=== PATIENT | female | born 1950 | race Caucasian/White ===

== ENCOUNTER → 2017-01-01 | Outpatient (CLI) | payer OTHER, MEDICARE ==
--- NOTE | 2017-01-01 13:33 | DIAGNOSTIC IMAGING REPORT ---
LUMBAR SPINE 5 VIEWS CLINICAL HISTORY: Right-sided sciatica. FINDINGS: Five views of the lumbar spine are obtained. No prior studies are available for comparison at the time of dictation. The skeletal structures are osteopenic. There is no radiographic evidence of fracture or malalignment. Vertebral body height and alignment are maintained throughout the lumbar spine. Anterior osteophytes are seen throughout. The transverse and spinous processes appear preserved. There is no evidence of spondylolysis. Facet arthropathy is seen in the lower lumbar region. There is moderate degenerative disc space narrowing at L1-L2 with associated endplate sclerosis. Mild disc space narrowing is seen at the remaining lumbar levels. Endplate sclerosis is also seen at L3-L4. The bony pelvis is intact as visualized. Sclerotic change is noted in the sacroiliac joints. There is a nonobstructed abdominal bowel gas pattern. Phleboliths are seen in the pelvis. There is moderate atherosclerotic calcification of the abdominal aorta. IMPRESSION: 1. There is no acute bony abnormality seen involving the lumbosacral spine. 2. Osteopenia and spondylotic change as above. Dictated: 01/01/2017 1:21 PM Transcribed: 01/01/2017 1:33 PM Patience Electronically signed by: Gerardo Shaffer M.D. 01/01/2017 1:45 PM Dictated Date/Time: 01/01/2017 1:21 PM
== END | disposition home or self-care (01) ==
LOC: C.RAD1850 11:50
PROVIDERS: ATTEND Internal Medicine
DX: M54.31 Sciatica, right side (principal); M85.80 Other specified disorders of bone density and structure, unspecified site

== ENCOUNTER → 2017-02-23 | Outpatient (CLI) | payer OTHER, MEDICARE ==
[2017-02-23 15:53] LABS: ALT/SGPT 65 U/L (12-78); BLOOD UREA NITROGEN 14 mg/dl (7-18); BUN/CREATININE RATIO 18.5 (10-20); CALCIUM 9.3 mg/dl (8.5-10.1); CARBON DIOXIDE 31 mmol/L (21-32); CHLORIDE 100 mmol/L (98-107); CREATININE 0.73 mg/dl (0.60-1.20); GLUCOSE 218 mg/dl (70-99); POTASSIUM 3.4 mmol/L (3.5-5.1); SODIUM 141 mmol/L (136-145)
[2017-02-23 15:56] LABS: ALB/GLOB RATIO 1.2 (0.9-2); ALKALINE PHOSPHATASE 69 U/L (45-117); AST/SGOT 35 U/L (15-37)
[2017-02-24 07:40] LABS: ESTIMATED AVERAGE GLUCOSE 154 mg/dl; HA1C FLAG Normal (Normal)
== END | disposition home or self-care (01) ==
LOC: C.LAB 15:09
PROVIDERS: ATTEND Internal Medicine
DX: R94.5 Abnormal results of liver function studies (principal); E11.9 Type 2 diabetes mellitus without complications; I10 Essential (primary) hypertension; E78.5 Hyperlipidemia, unspecified

== ENCOUNTER → 2017-02-26 | Outpatient (CLI) | payer OTHER, MEDICARE ==
[2017-02-26 12:24] LABS: BASO % 0.5 %; BASO ABS # 0.04 K/uL (0-0.2); COMPLETE YES; EOS % 3.8 %; HEMATOCRIT 43.1 % (37-47); IG% 0.3 %; LYMPH % 26.7 %; LYMPH ABS # 1.96 K/uL (1.2-3.4); MEAN CORPUSCULAR HEMOGLOBIN 30.6 pg (25-34); MEAN CORPUSCULAR HGB CONC 34.8 g/dl (32-36); MEAN PLATELET VOLUME 10.7 fL (7.4-10.4); MONO % 7.2 %; NEUT % 61.5 %; PLATELET COUNT 249 K/uL (130-400); WHITE BLOOD COUNT 7.35 K/uL (4.8-10.8)
[2017-02-26 12:55] LABS: THYROID STIMULATING HORMONE 1.78 uIu/ml (0.300-4.500)
[2017-02-26 13:04] LABS: LYME DISEASE AB IGG NEG (NEG); LYME DISEASE AB IGM NEG (NEG)
--- NOTE | 2017-03-04 12:48 | CODING QUERY MEDICAL NECESSITY ---
SUPPORTING DIAGNOSIS NEEDED Dr. Huber, A supporting diagnosis is required for the test/procedure performed on this patient in order for us to be reimbursed by the patient's insurance. Please provide a supporting diagnosis for the following test/procedure listed below next to the test name along with your signature. *If there is no additional diagnosis for this patient that would support the following test/procedure please document that below next to the test/procedure. Test(s)/Procedure(s) that require a supporting diagnosis: * ([id number]) B12 VITAMIN LEVEL DIAGNOSIS: DATE OF SERVICE: 02/26/17 Provider Signature: Date: Thank you Berry Payne [facility] Information Management Once completed, please kindly fax back to [phone] For questions please call [phone]
== END | disposition home or self-care (01) ==
LOC: C.LAB1850 10:52
PROVIDERS: ATTEND Internal Medicine
DX: M25.50 Pain in unspecified joint (principal); E53.8 Deficiency of other specified B group vitamins

== ENCOUNTER → 2017-08-01 | Outpatient (CLI) | payer OTHER, MEDICARE ==
[2017-08-01 10:34] LABS: ALT/SGPT 89 U/L (12-78); AST/SGOT 45 U/L (15-37); BLOOD UREA NITROGEN 12 mg/dl (7-18); CALCIUM 9.4 mg/dl (8.5-10.1); CARBON DIOXIDE 31 mmol/L (21-32); CHLORIDE 101 mmol/L (98-107); CREATININE 0.62 mg/dl (0.60-1.20); GLUCOSE 121 mg/dl (70-99); POTASSIUM 3.8 mmol/L (3.5-5.1); SODIUM 138 mmol/L (136-145)
[2017-08-01 10:37] LABS: CHOLESTEROL 399 mg/dl (0-200); CHOLESTEROL/HDL RATIO 7.8; HDL CHOLESTEROL 51 mg/dl; TRIGLYCERIDES 664 mg/dl (0-150)
[2017-08-01 11:20] LABS: ESTIMATED AVERAGE GLUCOSE 146 mg/dl; HA1C FLAG Normal (Normal)
== END | disposition home or self-care (01) ==
LOC: C.LAB 09:05
PROVIDERS: ATTEND Internal Medicine Cardiovascular Disease
DX: I25.10 Atherosclerotic heart disease of native coronary artery without angina pectoris (principal); E78.5 Hyperlipidemia, unspecified; I10 Essential (primary) hypertension; E55.9 Vitamin D deficiency, unspecified; E53.8 Deficiency of other specified B group vitamins; E11.9 Type 2 diabetes mellitus without complications

== ENCOUNTER → 2017-08-07 | Outpatient (CLI) | payer OTHER, MEDICARE ==
[2017-08-07 12:18] LABS: HEMATOCRIT 44.3 % (37-47); MEAN CELL VOLUME 93.1 fL (80-100); MEAN CORPUSCULAR HEMOGLOBIN 30.9 pg (25-34); MEAN CORPUSCULAR HGB CONC 33.2 g/dl (32-36); MEAN PLATELET VOLUME 10.5 fL (7.4-10.4); PLATELET COUNT 271 K/uL (130-400); RED BLOOD COUNT 4.76 M/uL (4.2-5.4); WHITE BLOOD COUNT 10.91 K/uL (4.8-10.8)
== END | disposition home or self-care (01) ==
LOC: C.LAB1850 10:48
PROVIDERS: ATTEND Internal Medicine
DX: R94.5 Abnormal results of liver function studies (principal)

== ENCOUNTER → 2017-09-19 | Outpatient (CLI) | payer OTHER, MEDICARE | END | disposition home or self-care (01) | LOC: C.LAB1850 09:24 | PROVIDERS: ATTEND Internal Medicine | DX: E78.5 Hyperlipidemia, unspecified (principal) ==

== ENCOUNTER → 2017-12-10 | Outpatient (CLI) | payer OTHER, MEDICARE ==
[~2017-12-10] MED LIST: OPTIRAY 320 IV PRN
[2017-12-10 17:40] LABS: BASO % 0.4 %; BASO ABS # 0.04 K/uL (0-0.2); EOS % 1.8 %; EOS ABS # 0.18 K/uL (0-0.5); HEMATOCRIT 44.8 % (37-47); HEMOGLOBIN 15.3 g/dL (12.0-16.0); IG# 0.03 K/uL (0.00-0.02); LYMPH % 28.7 %; MEAN CELL VOLUME 91.8 fL (80-100); MEAN CORPUSCULAR HEMOGLOBIN 31.4 pg (25-34); MEAN CORPUSCULAR HGB CONC 34.2 g/dl (32-36); MEAN PLATELET VOLUME 10.3 fL (7.4-10.4); MONO % 6.9 %; MONO ABS # 0.67 K/uL (0.11-0.59); NEUT % 61.9 %; NEUT ABS # 6.02 K/uL (1.4-6.5); PLATELET COUNT 310 K/uL (130-400); RED CELL DISTRIBUTION WIDTH CV 13.2 % (11.5-14.5); WHITE BLOOD COUNT 9.74 K/uL (4.8-10.8)
[2017-12-10 17:59] LABS: ALBUMIN 3.7 gm/dl (3.4-5.0); ALT/SGPT 79 U/L (12-78); BLOOD UREA NITROGEN 14 mg/dl (7-18); CALCIUM 9.8 mg/dl (8.5-10.1); CARBON DIOXIDE 30 mmol/L (21-32); CREATININE 0.61 mg/dl (0.60-1.20); GLUCOSE 105 mg/dl (70-99); POTASSIUM 3.7 mmol/L (3.5-5.1); SODIUM 139 mmol/L (136-145)
[2017-12-10 18:01] LABS: ALKALINE PHOSPHATASE 93 U/L (45-117); AST/SGOT 40 U/L (15-37); TOTAL PROTEIN 7.7 gm/dl (6.4-8.2)
--- NOTE | 2017-12-10 19:15 | DIAGNOSTIC IMAGING REPORT ---
CT SCAN OF THE ABDOMEN AND PELVIS WITH IV CONTRAST CLINICAL HISTORY: Right lower quadrant abdominal pain. Melanotic stool. COMPARISON STUDY: Radiographs of the lumbar spine dated 01/01/17. TECHNIQUE: Following the IV administration of 116 cc of Optiray 320, CT scan of the abdomen and pelvis is performed from the lung bases to the proximal femora. Images are reviewed in the axial, sagittal, and coronal planes. IV contrast was administered without complication. A dose lowering technique was utilized adhering to the principles of ALARA. CT DOSE: 537.38 mGy.cm FINDINGS: Lung bases: The heart is normal in size and without pericardial effusion. There are coronary artery calcifications. The lung bases are clear. There is a tiny hiatal hernia. Liver: The contrast-enhanced liver is top normal in size and demonstrates diffusely diminished attenuation consistent with severe hepatic steatosis. There is no intrahepatic biliary ductal dilatation. The hepatic veins and portal veins are patent. Gallbladder: Unremarkable. Spleen: Normal in size and attenuation. Pancreas: Unremarkable. Adrenal glands: Unremarkable. Kidneys: The contrast enhanced kidneys demonstrate mild cortical atrophy and are without hydronephrosis. The kidneys enhance symmetrically. Abdominal vasculature: The abdominal aorta is normal in course and caliber noting moderate atherosclerotic calcification. Bowel: No bowel obstruction is seen. The appendix is well-visualized and normal. There are scattered diverticula of the right colon without CT evidence of acute diverticulitis. Peritoneum: There is no intraperitoneal free air or abdominal ascites. There is a small fat-containing umbilical hernia. Lymphadenopathy: None. Pelvic viscera: The bladder is normal as visualized. The uterus is surgically absent. No adnexal lesion is seen. Skeletal structures: The skeletal structures are osteopenic. There is mild lumbosacral spondylosis. No lytic or blastic lesions are seen. IMPRESSION: 1. There are no acute infectious or inflammatory findings in the abdomen or pelvis. 2. Hepatic steatosis. 3. Additional findings as above. Electronically signed by: Gerardo Shaffer M.D. 12/10/2017 7:14 PM Dictated Date/Time: 12/10/2017 7:05 PM
== END | disposition home or self-care (01) ==
LOC: C.CTS 16:18
PROVIDERS: ATTEND Nurse Practitioner Adult Health
DX: R10.813 Right lower quadrant abdominal tenderness (principal); K92.1 Melena; K30 Functional dyspepsia; K76.0 Fatty (change of) liver, not elsewhere classified

== ENCOUNTER → 2018-02-24 | Outpatient (CLI) | payer OTHER, MEDICARE ==
[2018-02-24 12:07] LABS: HEMOGLOBIN 14.3 g/dL (12.0-16.0); MEAN CELL VOLUME 90.7 fL (80-100); MEAN CORPUSCULAR HEMOGLOBIN 30.9 pg (25-34); MEAN PLATELET VOLUME 10.6 fL (7.4-10.4); PLATELET COUNT 281 K/uL (130-400); RED CELL DISTRIBUTION WIDTH CV 12.6 % (11.5-14.5); RED CELL DISTRIBUTION WIDTH SD 41.7 fL (36.4-46.3); WHITE BLOOD COUNT 6.28 K/uL (4.8-10.8)
[2018-02-24 12:24] LABS: HEMOGLOBIN A1C 7.9 % (4.5-5.6)
[2018-02-24 12:46] LABS: ALBUMIN 3.5 gm/dl (3.4-5.0); ALT/SGPT 68 U/L (12-78); AST/SGOT 37 U/L (15-37); BLOOD UREA NITROGEN 13 mg/dl (7-18); CALCIUM 9.4 mg/dl (8.5-10.1); CARBON DIOXIDE 31 mmol/L (21-32); CHOLESTEROL 327 mg/dl (0-200); CREATININE 0.66 mg/dl (0.60-1.20); GLUCOSE 111 mg/dl (70-99); POTASSIUM 3.4 mmol/L (3.5-5.1); SODIUM 140 mmol/L (136-145)
[2018-02-24 13:02] LABS: ALKALINE PHOSPHATASE 70 U/L (45-117); LDL CHOLESTEROL CALCULATED 201 mg/dl
== END | disposition home or self-care (01) ==
LOC: C.LAB1850 10:12
PROVIDERS: ATTEND Internal Medicine
DX: E11.9 Type 2 diabetes mellitus without complications (principal); R79.89 Other specified abnormal findings of blood chemistry; L67.9 Hair color and hair shaft abnormality, unspecified; E78.5 Hyperlipidemia, unspecified

== ENCOUNTER 2018-06-19 11:06 | Emergency (ER) | payer OTHER, MEDICARE ==
[~2018-06-19] VITALS: Ht 160 cm; Wt 74.4 kg
[2018-06-19 11:18] VITALS: TEMP 36.7; Ht 160 cm; Wt 74.4 kg
--- NOTE | 2018-06-19 12:11 | EMERGENCY ROOM VISIT NOTE ---
History Report prepared by Nikhil: Concepcion Bhatt Under the Supervision of: Dr. Zoie Donohue M.D. First contact with patient: 11:35 Chief Complaint: HEAD PAIN Stated Complaint: HEAD HURTS History of Present Illness The patient is a 68 year old female who presents to the Emergency Room with complaints of constant left lower head pain beginning 3 days ago. She notes the pain and numbness is behind her left ear, and rates it a 4/10 in severity. The patient reports she has a tumor behind one of her ears, but is unsure which side , and is unsure what kind of tumor it is. She denies any vomiting. The patient notes she has not had headaches recently, but used to get them all the time,and those headaches made her feel dizzy and felt different from her current symptoms. Source of History: patient Onset: 3 days ago Position: head (left, lower) Symptom Intensity: 4/10 Quality: numbness, other (pain) Timing: constant Associated Symptoms: No vomiting Review of Systems See HPI for pertinent positives & negatives. A total of 10 systems reviewed and were otherwise negative. Past Medical & Surgical Medical Problems: (1) Headache Headache Family History No pertinent family history stated. Social History Smoking Status: Never Smoker Marital Status: Housing Status: lives with family Occupation Status: retired Physical Exam Vital Signs Date Time Temp Pulse Resp B/P (MAP) Pulse Ox O2 Delivery O2 Flow Rate FiO2 06/19/18 14:16 72 18 157/88 06/19/18 13:10 74 19 157/89 94 Room Air 06/19/18 12:15 71 17 159/83 94 Room Air 06/19/18 12:09 76 06/19/18 11:18 36.7 75 16 150/84 97 Room Air Physical Exam Vital signs reviewed. General: Well-appearing female, in no significant distress. HEENT: No scleral icterus, PERRLA, neck supple. Atraumatic. TMs clear. Cardiovascular: Regular rate and rhythm, no extra sounds. Pulmonary: Clear to auscultation bilaterally, normal work of breathing. Abdomen: Soft, nontender, nondistended, positive bowel sounds. Musculoskeletal: Atraumatic, no peripheral edema. Neurologic: Patient awake alert and oriented x 3, full strength in all 4 extremities. Cranial nerves 2 through 12 grossly intact. Skin: Warm, dry, no rash Medical Decision & Procedures ER Provider Diagnostic Interpretation: Radiology results as stated below per my review and radiologist interpretation: HEAD WITHOUT CONTRAST (CT) CT DOSE: 537.48 mGy.cm HISTORY: Mental status change L GARCIA, known R post fossa meningioma TECHNIQUE: Multiaxial CT images of the head were performed without the use of intravenous contrast. A dose lowering technique was utilized adhering to the principles of ALARA. Comparison: MRI brain 08/30/2016 Findings: The paranasal sinuses and mastoid air cells are clear. The calvarium and skull base are intact. The ventricles and sulci are within normal limits. There is no mass, hematoma, midline shift, or acute infarct. 2 cm calcified meningioma or frontal aspect right cerebellum. This is unaltered from the prior study. Impression: 1. Known 2 cm calcified meningioma right cerebellum. 2. No acute intracranial abnormality. Medications Administered Medications (Trade) Dose Ordered Sig/Tristian Route Start Time Stop Time Status Last Admin Dose Admin Acetaminophen (Tylenol Tab) 650 mg NOW STAT PO 06/19/18 13:44 06/19/18 13:45 DC 06/19/18 14:14 650 MG ED Course 1136: Past medical records reviewed. The patient was evaluated in room C2B. A complete history and physical examination was performed. 1209: Reviewed patient records: patient has 21mm R posterior fossa meningioma as of August 2016. 1351: Upon reevaluation, the patient appeared to have improvement of her symptoms. I discussed findings with her. She verbalized agreement of the treatment plan. The patient was discharged home. Medical Decision DDx: Intracranial hemorrhage, intracranial mass, migraine headache, tension headache , sinusitis, meningitis This patient was evaluated and appeared to be in no significant distress. IV access was obtained and laboratory work was drawn. She was given Tylenol [address] a CT scan of the head was performed. There is no significant change in the size of the meningioma and she did have some relief of her symptoms with Tylenol. On reevaluation, patient's admits that he has been giving her neck massages. She is tender along the left paraspinous muscles. I do suspect that there is a muscular component to the pain. It is on the opposite side of the meningioma. Patient was reassured regarding the findings. She was advised to use warm compresses and gentle stretching. If symptoms continue she was encouraged to seek physical therapy evaluation. She will return to the ED for worsening of symptoms or any medical concerns. Medication Reconcilliation Current Medication List: was personally reviewed by me Blood Pressure Screening Patient's blood pressure: Elevated blood pressure Blood pressure disposition: Referred to PCP Impression Primary Impression: Spasm of cervical paraspinous muscle Additional Impressions: Headache Meningioma Scribe Attestation The scribe's documentation has been prepared under my direction and personally reviewed by me in its entirety. I confirm that the note above accurately reflects all work, treatment, procedures, and medical decision making performed by me. Departure Information Dispostion Home / Self-Care Referrals No Doctor, Assigned (PCP) Forms HOME CARE DOCUMENTATION FORM, IMPORTANT VISIT INFORMATION, WORK / SCHOOL INSTRUCTIONS Patient Instructions My [facility] Additional Instructions Diagnosis: Headache, meningioma, left cervical paraspinous muscle spasm. Tylenol 650 mg every 6 hours as needed for pain. Drink plenty of clear fluids. Warm compresses and gentle stretching. Please contact your primary care physician for consideration of physical therapy. Follow-up with your neurosurgeon or neurologist regarding the meningioma. It does not appear to have changed significantly in size. You had a CT scan done today, he/she may warrant an MRI. Return to the emergency department for worsening of symptoms or any medical concerns. Problem Qualifiers
--- NOTE | 2018-06-19 12:46 | DIAGNOSTIC IMAGING REPORT ---
HEAD WITHOUT CONTRAST (CT) CT DOSE: 537.48 mGy.cm HISTORY: Mental status change L GARCIA, known R post fossa meningioma TECHNIQUE: Multiaxial CT images of the head were performed without the use of intravenous contrast. A dose lowering technique was utilized adhering to the principles of ALARA. Comparison: MRI brain 08/30/2016 Findings: The paranasal sinuses and mastoid air cells are clear. The calvarium and skull base are intact. The ventricles and sulci are within normal limits. There is no mass, hematoma, midline shift, or acute infarct. 2 cm calcified meningioma or frontal aspect right cerebellum. This is unaltered from the prior study. Impression: 1. Known 2 cm calcified meningioma right cerebellum. 2. No acute intracranial abnormality. The above report was generated using voice recognition software. It may contain grammatical, syntax or spelling errors. Electronically signed by: Abran Simpson M.D. 06/19/2018 12:44 PM Dictated Date/Time: 06/19/2018 12:42 PM
[2018-06-19 13:10] VITALS: O2SAT 94
[2018-06-19] MEDS ORDERED: ACETAMINOPHEN 325 MG TAB PO STA (13:44)
[2018-06-19 14:16] VITALS: BP 157/88; PULSE 72
== END 2018-06-19 14:25 | disposition home or self-care (01) ==
LOC: C.EDB 11:07 → C.EDC 14:25
DX: M62.838 Other muscle spasm (principal); R51 Headache; D32.9 Benign neoplasm of meninges, unspecified; R20.0 Anesthesia of skin; R42 Dizziness and giddiness

== ENCOUNTER → 2018-06-19 | Outpatient (CLI) | payer OTHER, MEDICARE ==
[2018-06-19 12:07] LABS: BLOOD UREA NITROGEN 16 mg/dl (7-18); CALCIUM 9.4 mg/dl (8.5-10.1); CARBON DIOXIDE 29 mmol/L (21-32); CREATININE 0.68 mg/dl (0.60-1.20); GLUCOSE 107 mg/dl (70-99); POTASSIUM 3.8 mmol/L (3.5-5.1); SODIUM 139 mmol/L (136-145)
[2018-06-19 12:40] LABS: HEMOGLOBIN A1C 7.2 % (4.5-5.6)
== END | disposition home or self-care (01) ==
LOC: C.LAB1850 10:51
PROVIDERS: ATTEND Internal Medicine
DX: E11.9 Type 2 diabetes mellitus without complications (principal)